=== PATIENT | female | born 1930 | race Caucasian/White ===

== ENCOUNTER 2016-10-17 02:12 | Emergency (ER) | payer MEDICARE ==
[2016-10-17 02:15] VITALS: BP 114/88; PULSE 88; RESP 18; TEMP 97.6; O2SAT 99
--- NOTE | 2016-10-17 02:50 | RADRPT ---
EXAM DATE/TIME: 10/17/2016 02:34 [facility] COMPARISON: No previous studies available for comparison. INDICATIONS : Trauma; fall - laceration to left forehead. RADIATION DOSE: 56.35 CTDIvol (mGy) MEDICAL HISTORY : Ulcerative colitis. SURGICAL HISTORY : None. ENCOUNTER: Initial ACUITY: 1 day PAIN SCALE: 3/10 LOCATION: cranial TECHNIQUE: Multiple contiguous axial images were obtained of the head. Using automated exposure control and adj ustment of the mA and/or kV according to patient size, radiation dose was kept as low as reasonably a chievable to obtain optimal diagnostic quality images. DICOM format image data is available electro nically for review and comparison. FINDINGS: There is mild symmetric atrophy. No evidence of intracranial mass or hemorrhage. Nothing to suggest a cute infarction. Extracranial structures are grossly intact. CONCLUSION: No acute intracranial injury Brenton Banks MD on October 17, 2016 at 2:47 Board Certified Radiologist. This report was verified electronically.
--- NOTE | 2016-10-17 03:40 | PD ---
HPI Chief Complaint: Fall Time Seen by Provider: 02:24 Travel History International Travel<30 days: No Contact w/Intl Traveler<30days: No Traveled to known affect area: No History of Present Illness HPI 86-year-old female arrives from assisted living facility. She fell out of bed. She struck her forehead on the ground causing a laceration of bleeding which was dressed with gauze. She also complains of right hip pain and right knee pain in the ER. the patient does not take anticoagulant medication. 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 History is provided mainly by EMS and by the patient's medical records which accompanied her. [facility] Past Medical History Anxiety: Yes Depression: Yes Gastrointestinal Disorders: Yes (ulcerative colitis) GERD: Yes Genitourinary: Yes (overactive bladder) Medical other: Yes (hypokalemia) Thyroid Disease: Yes (hypo) Tetanus Vaccination: Unknown Past Surgical History Surgical History: Unable to Obtain Social History Tobacco Use: Yes Allergies-Medications (Allergen,Severity, Reaction): Coded Allergies: Morphine (Verified Allergy, Unknown, 10/17/16) Review of Systems Except as stated in HPI: all other systems reviewed are Neg Physical Exam Narrative GENERAL: 86-year-old female mildly anxious otherwise cooperative SKIN: Focused skin assessment warm/dry. Approximate 2 cm somewhat round abrasion overlying the left forehead. HEAD: Atraumatic. Normocephalic. EYES: Pupils equal and round. No scleral icterus. No injection or drainage. ENT: No nasal bleeding or discharge. Mucous membranes pink and moist. NECK: Trachea midline. No JVD. CARDIOVASCULAR: Regular rate and rhythm. No murmur appreciated. RESPIRATORY: No accessory muscle use. Clear to auscultation. Breath sounds equal bilaterally. GASTROINTESTINAL: Abdomen soft, non-tender, nondistended. Hepatic and splenic margins not palpable. MUSCULOSKELETAL: No obvious deformities. No clubbing. No cyanosis. No edema. Minimal ecchymosis about the medial aspect of the right knee. NEUROLOGICAL: Awake and alert. No obvious cranial nerve deficits. Motor grossly within normal limits. Normal speech. PSYCHIATRIC: Appropriate mood and affect; insight and judgment normal. Data Data Last Documented VS Vital Signs Date Time Temp Pulse Resp B/P Pulse Ox O2 Delivery O2 Flow Rate FiO2 10/17/16 02:15 88 18 114/88 99 Vital signs reviewed, patient reported to be afebrile Orders Ct Brain W/O Iv Contrast(Rout) (10/17/16 02:24) Knee, Complete (4vws) (10/17/16 02:24) Ice/Cold Pack (10/17/16 02:24) Pelvis, Ap Only (Routine) (10/17/16 02:24) MDM Medical Decision Making Medical Screen Exam Complete: Yes Emergency Medical Condition: Yes Medical Record Reviewed: Yes Differential Diagnosis Intracranial hemorrhage, knee fracture, pelvis fracture, laceration Narrative Course EKG reveals an electronic ventricular paced rhythm at 85 atraumatic Last [address] 10/17/164 Signed Impressions: Service Date/Time: Wednesday, October 17, 2016 02:34 - CONCLUSION: No acute intracranial injury Brenton Banks MD Forehead laceration repaired by PA. Imaging is unremarkable and the patient is ready for discharge home. Diagnosis Primary Impression: Fall Qualified Code: W19.XXXA - Fall, initial encounter Additional Impression: Forehead laceration Qualified Code: S01.81XA - Forehead laceration, initial encounter Referrals: Primary Care Physician Additional Instructions: You have a choice when it comes to health care, and we are glad that you chose [facility]. Hopefully, we have met your expectations on today's visit. You are welcome to return to [facility] at any time, as we are committed to meeting the health care needs of our community. Med/Other Pt SpecificInfo: No Change to Meds Disposition: 01 DISCHARGE HOME Condition: Stable Leandro Dotson MD Oct 17, 2016 03:40
--- NOTE | 2016-10-17 03:47 | PD ---
Physical Exam Narrative I was asked by Dr. Dotson to repair patient's laceration. Please see his documentation for full H&P. Data Data Last Documented VS Vital Signs Date Time Temp Pulse Resp B/P Pulse Ox O2 Delivery O2 Flow Rate FiO2 10/17/16 02:15 88 18 114/[address] Brain W/O Iv Contrast(Rout) (10/17/16 02:24) Knee, Complete (4vws) (10/17/16 02:24) Ice/Cold Pack (10/17/16 02:24) Pelvis, Ap Only (Routine) (10/17/16 02:24) MDM Supervised Visit with VIVI: No Procedures Procedure Narrative LACERATION REPAIR LOCATION: Left forehead LENGTH: Oxygen at 2 cm in total length NUMBER OF STITCHES/FRANKIE: 1 buried and 4 to close REPAIR: Verbal consent was obtained. The area of the laceration was cleaned and prepped. The laceration was infiltrated with lidocaine with epi. The wound was copiously irrigated and explored without evidence of foreign body, bony involvement, ligament injury, tendon injury, or neurovascular injury. The wound was closed using 5-0 Vicryl. This was a 2 layer repair with repair the periosteum. A sterile dressing was applied by nurse. The patient was advised to keep the affected area as clean and dry as possible using soap and water. There were no complications. Patient tolerated the procedure well. Andres Mathur Oct 17, 2016 03:47
--- NOTE | 2016-10-17 03:50 | RADRPT ---
EXAM DATE/TIME: 10/17/2016 03:01 [facility] COMPARISON: No previous studies available for comparison. INDICATIONS : Pain due to fall. MEDICAL HISTORY : None. SURGICAL HISTORY : Left femur ENCOUNTER: Initial ACUITY: 1 day PAIN SCORE: LOCATION: pelvis FINDINGS: Previous thinning of the left hip with long intramedullary rose in the left femur. Severe delay in art hritic change in the left hip joint moderately severe arthritic changes in the contralateral right hi p. No definite evidence of fracture of the hips or pelvis. CONCLUSION: No acute bony injury Brenton Banks MD on October 17, 2016 at 3:47 Board Certified Radiologist. This report was verified electronically.
--- NOTE | 2016-10-17 04:31 | RADRPT ---
EXAM DATE/TIME: 10/17/2016 00:00 [facility] COMPARISON: No previous studies available for comparison. INDICATIONS : Pain due to fall. MEDICAL HISTORY : None. SURGICAL HISTORY : Left femur ENCOUNTER: Initial ACUITY: 1 day PAIN SCORE: LOCATION: Right knee FINDINGS: There is severe or 3 changes with significant lateral compartment joint space narrowing and prominent marginal osteophytes. No definite evidence of fracture or destructive change. CONCLUSION: Arthritic changes. No definite acute bony process Brenton Banks MD on October 17, 2016 at 4:29 Board Certified Radiologist. This report was verified electronically.
[2016-10-17 06:46] VITALS: BP 103/55; PULSE 85; RESP 18; TEMP 98.1; O2SAT 97
[2016-10-17] MEDS ORDERED: CLON0.5T PO (06:53)
[2016-10-17] MEDS ORDERED: TRAM50TA PO (06:53)
[2016-10-17] MEDS ORDERED: DONE10TA7 PO (06:53)
[2016-10-17] MEDS ORDERED: METR-1 PO (06:53)
[2016-10-17] MEDS ORDERED: HALO0.5T PO (06:53)
[2016-10-17] MEDS ORDERED: LEVO75TA3 PO (06:53)
[2016-10-17] MEDS ORDERED: ESCI10TA PO (06:53)
[2016-10-17] MEDS ORDERED: MIRA50TA PO (06:53)
[2016-10-17 07:02] VITALS: BP 103/55; PULSE 77; RESP 18; O2SAT 96
--- NOTE | 2016-10-17 12:23 | EKG ---
Date Performed: 10/17/2016 Time Performed: 02:21:22 PTAGE: 86 years EKG: ELECTRONIC VENTRICULAR PACEMAKER ABNORMAL RHYTHM ECG NO PREVIOUS TRACING DOCTOR: Fredrick Vanegas Interpretating Date/Time 10/17/2016 12:19:59
== END 2016-10-17 09:00 | disposition home or self-care (01) ==
LOC: NEPE 02:12
DX: S01.81XA Laceration without foreign body of other part of head, initial encounter (principal); M25.551 Pain in right hip; M25.561 Pain in right knee; F03.90 Unspecified dementia, unspecified severity, without behavioral disturbance, psychotic disturbance, mood disturbance, and anxiety; R94.31 Abnormal electrocardiogram [ECG] [EKG]; W06.XXXA Fall from bed, initial encounter; Y92.099 Unspecified place in other non-institutional residence as the place of occurrence of the external cause
CPT/HCPCS: 12051; 70450; 72170; 73560; 73564; 93005